=== PATIENT | male | born 1990 | race Caucasian/White ===

== ENCOUNTER 2022-04-01 08:26 | Emergency (ER) | payer SELFPAY ==
[~2022-04-01] VITALS: Ht 170.2 cm; Wt 63.0 kg
--- NOTE | 2022-04-01 13:44 | EKG ---
[facility] [address] [facility] [place], [place] [address] Signed Normal sinus rhythm Normal ECG No previous ECGs available Confirmed by YAZMIN ROSENBERG MD ([id number]) on 04/01/2022 1:44:35 PM Electronically Signed By: YAZMIN ROSENBERG MD 04/01/22 1344 PATIENT NAME: GAL HILL Electrocardiogram DATE OF : [birth year] PHYSICIAN: YAZMIN ROSENBERG MD REPORT #: [id number] REPORT IS CONFIDENTIAL AND NOT TO BE RELEASED WITHOUT AUTHORIZATION
[2022-04-02] MEDS ORDERED: HYDROCODON-ACE1 EA11 PO (09:01)
[2022-04-02] MEDS ORDERED: ONDANSETRON ODT8 MG PO (09:01)
== END 2022-04-02 09:14 | disposition home or self-care (01) ==
LOC: ED 08:26
DX: U07.1 COVID-19 (principal); N28.9 Disorder of kidney and ureter, unspecified; D72.829 Elevated white blood cell count, unspecified
CPT/HCPCS: 36415; 71045; 74177; 80053; 81001; 83605; 83690; 85025; 87502; 93005; 93010; 96361; 96375; 96376; 99285-25; A9270; C9803; J2405; J2765; J7030; Q9967; U0003

== ENCOUNTER 2022-04-07 09:48 | Emergency (ER) | payer OTHER ==
[~2022-04-07] VITALS: Ht 170.2 cm; Wt 62.1 kg
[~2022-04-07 09:48] MED LIST: HYDROCODON-ACE1 EA11 PO; ONDANSETRON ODT8 MG PO
--- OUTSIDE RECORDS SUMMARY | 2022-04-07 09:52 | XMS ---
PreManage Notification: GAL HILL Security Phone Triage Specialist Events No recent Security Events currently on file CRITERIA MET - - 2 Visits in 30 Days CARE PROVIDERS There are no care providers on record at this time. Barry has no Care Guidelines for this patient. Frantz VISIT COUNT (12 MO.) 1 [facility] [address] [facility] TOTAL 3 NOTE: Visits indicate total known visits. ED/C VISIT TRACKING (12 MO.) 04/07/2022 09:50 [facility] [place] TYPE: Emergency COMPLAINT: - DISORIENTED,WEAKNESS,VISION ISSUES,PAIN URINATING 2022 12:03 [facility] [place] TYPE: Emergency DIAGNOSES: - Altered Mental Status - Unspecified abdominal pain - Unspecified hydronephrosis - Abdominal Pain - Other specified disorders of kidney and ureter 04/01/2022 08:27 [facility] TYPE: Emergency COMPLAINT: - SOB, R SIDE ABD PAIN DIAGNOSES: - Disorder of kidney and ureter, unspecified - Unspecified abdominal pain - Elevated white blood cell count, unspecified - COVID-19 INPATIENT VISIT TRACKING (12 MO.) 2022 12:03 [facility] [place] TYPE: Internal Medicine DIAGNOSES: - Other iron deficiency anemias - Unspecified hydronephrosis - Unspecified abdominal pain - Other specified disorders of kidney and ureter [email or web address]
== END 2022-04-07 11:59 | disposition home or self-care (01) ==
LOC: ED 09:48
DX: N28.89 Other specified disorders of kidney and ureter (principal); R53.1 Weakness
CPT/HCPCS: 36415; 80053; 81001; 83690; 85025; 87491; 96374; 99283-25; J2405; J7030

== ENCOUNTER 2022-04-29 13:05 | Emergency (ER) | payer OTHER ==
[~2022-04-29] VITALS: Ht 170.2 cm; Wt 59.2 kg
--- OUTSIDE RECORDS SUMMARY | 2022-04-29 13:08 | XMS ---
PreManage Notification: GAL HILL Security Punch Press Setter Events No recent Security Events currently on file CRITERIA MET - [facility] - 2 Visits in 30 Days CARE PROVIDERS There are no care providers on record at this time. Barry has no Care Guidelines for this patient. Frantz VISIT COUNT (12 MO.) 1 [facility] NOTE: Visits indicate total known visits. ED/C VISIT TRACKING (12 MO.) 04/29/2022 13:05 [facility] [place] TYPE: Emergency COMPLAINT: - CHEST PAIN,ABD PAIN 04/07/2022 09:50 [facility] TYPE: Emergency COMPLAINT: - DISORIENTED,WEAKNESS,VISION ISSUES,PAIN URINATING DIAGNOSES: - Other specified disorders of kidney and ureter - Weakness - Dysuria 2022 12:[address] [facility] TYPE: Emergency DIAGNOSES: - Altered Mental Status [...] INPATIENT VISIT TRACKING (12 MO.) 2022 12:03 [facility] [place] TYPE: Internal Medicine DIAGNOSES: - Other iron deficiency anemias - Unspecified hydronephrosis - Unspecified abdominal pain - Other specified disorders of kidney and ureter [email or web address]
[2022-04-29] MEDS ORDERED: OXYCODONE HCL5 MG PO (14:24)
[2022-04-29] MEDS ORDERED: FEROSUL325 MG PO (14:33)
[2022-04-29] MEDS ORDERED: ATIVAN1 MG PO (15:30)
--- NOTE | 2022-05-01 14:00 | EKG ---
[facility] [address] [facility] [place] [address] Signed Normal sinus rhythm Rightward axis Borderline ECG No previous ECGs available Confirmed by YAZMIN ROSENBERG MD ([id number]) on 05/01/2022 2:00:01 PM Electronically Signed By: YAZMIN ROSENBERG MD 05/01/22 1400 PATIENT NAME: GAL HILL Electrocardiogram DATE OF : [birth year] PHYSICIAN: YAZMIN ROSENBERG MD REPORT #: [id number] REPORT IS CONFIDENTIAL AND NOT TO BE RELEASED WITHOUT AUTHORIZATION
== END 2022-04-29 15:35 | disposition home or self-care (01) ==
LOC: ED 13:05
DX: R10.11 Right upper quadrant pain (principal); N28.89 Other specified disorders of kidney and ureter; R07.9 Chest pain, unspecified; R11.2 Nausea with vomiting, unspecified; G89.29 Other chronic pain; Z79.899 Other long term (current) drug therapy
CPT/HCPCS: 36415; 71260; 74177; 80053; 81001; 83690; 85025; 93005; 93010; 96361; 99284-25; J1170; J2060; J2405; J7030; Q9967

== ENCOUNTER 2023-03-07 09:12 | Emergency (ER) | payer OTHER ==
[~2023-03-07] VITALS: Ht 170.2 cm; Wt 70.1 kg
[~2023-03-07 09:12] MED LIST changes: +ATIVAN1 MG PO; +FEROSUL325 MG PO; +OXYCODONE HCL5 MG PO
--- OUTSIDE RECORDS SUMMARY | 2023-03-07 09:14 | XMS ---
PreManage Notification: GAL HILL Security Building And Grounds Supervisor Events No recent Security Events currently on file CRITERIA MET - PDMP CARE PROVIDERS -, [place]- Dentist: Outbound Sales Executive [facility] PHONE: [phone] Barry has no Care Guidelines for this patient. ENisha [facility] MO.) [facility] TOTAL 5 NOTE: Visits indicate total known visits. ED/UCC VISIT TRACKING (12 MO.) 03/07/2023 09:12 [facility] TYPE: Emergency COMPLAINT: - ABDOMINAL PAIN 04/29/2022 13:05 [facility] TYPE: Emergency COMPLAINT: - CHEST PAIN,ABD PAIN DIAGNOSES: - Chest pain, unspecified - Nausea with vomiting, unspecified - Other chronic pain - Other long-term (current) drug therapy - Other specified disorders of kidney and ureter - Right upper quadrant pain 04/07/2022 09:50 [facility] TYPE: Emergency COMPLAINT: - DISORIENTED,WEAKNESS,VISION ISSUES,PAIN URINATING DIAGNOSES: - Dysuria - Other specified disorders of kidney and ureter - Weakness 2022 12:03 [facility] TYPE: Emergency DIAGNOSES: - Other specified disorders of kidney and ureter - Unspecified abdominal pain - Unspecified hydronephrosis - Abdominal Pain - Altered Mental Status 04/01/2022 08:27 [facility] TYPE: Emergency COMPLAINT: - SOB, R SIDE ABD PAIN DIAGNOSES: - COVID-19 - Disorder of kidney and ureter, unspecified - Elevated white blood cell count, unspecified - Unspecified abdominal pain INPATIENT VISIT TRACKING (12 MO.) 05/11/2022 07:14 [facility] [place] TYPE: Surgery DIAGNOSES: 1. Malignant neoplasm of right renal pelvis 1. Malignant neoplasm of unspecified kidney, except renal pelvis 1. Malignant neoplasm of unspecified kidney, except renal pelvis 1. Malignant neoplasm of unspecified kidney, except renal pelvis 2. Acute kidney failure, unspecified 3. Localized enlarged lymph nodes 4. Personal history of COVID-19 2022 12:03 [facility] [place] TYPE: Internal Medicine DIAGNOSES: - Other iron deficiency anemias - Other specified disorders of kidney and ureter - Unspecified abdominal pain - Unspecified hydronephrosis [email or web address]
[2023-03-07] MEDS ORDERED: HYDROCODON-ACE1 EA10 PO (10:55)
[2023-03-07] MEDS ORDERED: ONDANSETRON ODT8 MG PO (10:55)
[2023-03-07 11:14] VITALS: BP 126/88
== END 2023-03-07 11:15 | disposition home or self-care (01) ==
LOC: ED 09:12
DX: K80.50 Calculus of bile duct without cholangitis or cholecystitis without obstruction (principal)
CPT/HCPCS: 36415; 74177; 80053; 81003; 83690; 85025; J2405; J7030; Q9967

== ENCOUNTER 2023-08-12 14:44 | Emergency (ER) | payer OTHER ==
[~2023-08-12] VITALS: Ht 170.2 cm; Wt 72.1 kg
[~2023-08-12 14:44] MED LIST changes: +HYDROCODON-ACE1 EA10 PO
[2023-08-12 15:54] LABS: BILIRUBIN, URINE NEGATIVE (negative); BLOOD/HGB, URINE NEGATIVE (Negative); KETONE, URINE NEGATIVE (Negative); LEUK ESTERASE, URINE NEGATIVE (negative); NITRITE, URINE NEGATIVE (negative)
[2023-08-12 15:55] LABS: BASOPHILS 0.3 % (0-2); EOSINOPHILS 1.5 % (0-6); HEMOGLOBIN 14.5 g/dL (12.0-18.0); LYMPHOCYTES 22.8 % (24-44); MCH 31.2 (27-36); MCHC 34.6 g/dl (30-36); MCV 90.1 fl (81-99); MONOCYTES 8.3 % (0-12); NEUTROPHILS 67.1 % (39-80); PLATELET COUNT 267 K/uL (140-440); RBC 4.65 M/ul (4.3-5.7); RDW 12.7 (10.5-15.0)
[2023-08-12 15:57] LABS: AMPHETAMINES, UR NEGATIVE (NEGATIVE); BARBITURATES, UR NEGATIVE (NEGATIVE); BENZODIAZEPINES, UR NEGATIVE (NEGATIVE); BUPRENORPHINE,UR NEGATIVE (NEGATIVE); COCAINE, UR NEGATIVE (NEGATIVE); MARIJUANA (THC), UR POSITIVE (NEGATIVE); MDMA, UR NEGATIVE (NEGATIVE); METHADONE, UR NEGATIVE (NEGATIVE); METHAMPHETAMINE, UR NEGATIVE (NEGATIVE); OPIATES, UR NEGATIVE (NEGATIVE); OXYCODONE, UR NEGATIVE (NEGATIVE); PHENCYCLIDINE, UR NEGATIVE (NEGATIVE); TRICYCLIC ANTIDEPRESSANT, UR NEGATIVE (NEGATIVE)
[2023-08-12 16:11] LABS: ALBUMIN 4.5 g/dL (3.4-5.0); ALBUMIN/GLOBULIN RATIO 1.29 (1.1-2.4); BILIRUBIN, TOTAL 0.6 ng/dL (0.2-1.0); CALCIUM 9.9 mg/dL (8.5-10.1); CREATININE, SERUM 1.5 mg/dL (0.70-1.30)
[2023-08-12 18:04] VITALS: BP 119/80
== END 2023-08-12 18:11 | disposition home or self-care (01) ==
LOC: ED 14:44
PROVIDERS: Internal Medicine
DX: R10.9 Unspecified abdominal pain (principal); M54.50 Low back pain, unspecified; G62.9 Polyneuropathy, unspecified
CPT/HCPCS: 36415; 74177; 80053; 81003; 83690; 85025; 99284-25; Q9967

== ENCOUNTER 2025-09-11 16:25 | Emergency (ER) | payer OTHER ==
[~2025-09-11] VITALS: Ht 170.2 cm; Wt 77.5 kg
[2025-09-11 17:33] VITALS: BP 126/98
== END 2025-09-11 17:34 | disposition home or self-care (01) ==
LOC: ED 16:25
DX: S61.011A Laceration without foreign body of right thumb without damage to nail, initial encounter (principal); W26.9XXA Contact with unspecified sharp object(s), initial encounter
CPT/HCPCS: 12001; 99282